=== PATIENT | male | born 1960 | race Caucasian/White ===

== ENCOUNTER 2020-03-06 16:21 | Outpatient (CLI) | payer OTHER | END 2020-03-06 16:22 | disposition home or self-care (01) | LOC: COV 16:21 | PROVIDERS: ATTEND Family Medicine | DX: Z20.828 Contact with and (suspected) exposure to other viral communicable diseases (principal) ==

== ENCOUNTER 2023-11-15 11:08 | Outpatient (CLI) | payer MEDICARE, OTHER ==
--- NOTE | 2023-11-15 12:04 | Sleep Patient Instructions ---
Sleep Center Visit Summary - Patient Visit Information Reason for Visit: Initial consultation - Patient Instructions Additional Instructions: You will continue with CPAP therapy with pressure changed to 7-10 cmH2O. A supply prescription will be updated with your DME. I have added an order to update your PAP machine. Please call the office to schedule a compliance follow up once you get your new device. We encourage you to continue to try to lose weight. Please follow up with the sleep care office one month after obtaining new device. - Clinic Information Contact: [facility] [address] [place] [address] [email or web address] T: [phone]
--- NOTE | 2023-11-15 12:16 | SLEEP CARE CONSULTATION ---
Information from patient questionnaire entered by Kelsi Ames. I have reviewed and concur with the information entered by Kelsi Ames. This document represents the service I personally performed and the decisions made by me, Joy Vega ARNP. History of Present Illness Service Date and Time: 11/15/2023 1108 Reason for Visit: New patient, Previously diagnosed sleep apnea, sleep apnea on CPAP therapy Chief Complaint: reports: Other (UPDATE SUPPLIES) Date of Onset: 16YRS Usual bedtime: 2230 Time it takes to fall asleep: 15MINS Snores at night: Yes Observed to quit breathing while asleep: Yes Sleeps alone due to snoring: Yes Number of times waking at night: 4 Reasons for waking at night: reports: Bathroom Toss, Turn, or Twitch while sleeping: Yes Recalls having dreams: Yes Usually gets out of bed at: 0730 Feels refreshed in the morning: Yes Morning headache: No Sleepy or fatigued during the day: No Ever fallen asleep while driving: No Takes day naps: No Dreams during day naps: No Prior sleep studies: Yes Year and Where: [facility] Additional HPI information: TED MOSQUEDA was previously diagnosed to have moderate to severe, AHI 22.7 with supine AHI 56.5, MIXED (obstructive and central) sleep apnea-hypopnea syndrome as seen in PSG dated 06/11/2009 through [facility] and comes in today to establish care for CPAP therapy. - Parasomnia Symptoms Ever been unable to move upon waking from sleep: No Walks in sleep: No Talks in sleep: No Ever acted out dreams in sleep: No Ever felt weak in the knees when startled or emotional: No Bothered by creepy, crawly, restless sensations in legs: No Problems with memory or concentration: No CPAP Compliance Data - Data Reviewed with Patient Average duration of nightly device use: 3 hours 59 minutes Compliance rate %: 32.8 (111/180 days used; 16.7% days used in last 30 days) Current pressure setting (cmH2O): 5-20 (avg 8.5, max 11.1) Average residual AHI: 4.6 Central apnea: 0.5 Obstructive apnea: 1.4 Hypopnea: 2.7 Average large leak: 30 secs Compliance data discussion: He has a Dreamstation that he got from a granddaughter when his old Respironics machine started failing. He is getting his supplies from [facility]. He has a nasal cushion, ResMed AirFit N30i. Subjective Patient concerns: reports: dry mouth, nose, throat (dry mouth, regular but not every day. ). denies: aerophagia, mask discomfort, air blowing in eyes, mask leak noise, condensation in mask/hose, nasal congestion, epistaxis Observed to snore while using device: No Current pressure setting perceived as: too high On therapy, patient: reports: sleeping better, awakening more refreshed, being more awake and alert during the day, more rested overall. denies: drowsiness while driving Initial [place] Sleepiness Scale score: 12 (11/07/23) Past Medical History Past Medical History: reports: Arrythmia (atrial fibrillation), GERD, Other (high cholesterol) Social History The patient's occupation is a [employer]. Patient is and lives in . Have you smoked in the past 12 months: No Cigarettes per day (20/pack): 15 Years of smokin Quit date: 08/2019 Smoking Pack Years: 28.0 Alcohol use: Yes Alcohol amount and frequency: 1 GLASS 2-3 WEEKS Caffeine use: No Family History Family history of sleep disordered breathing: Yes Family Hx Sleep Apnea: Father: Snoring, Sibling: Sleep apnea - Treated Allergies and Home Medications Known drug allergies: No Drug allergies reviewed: Yes Home medication list reviewed: Yes (as listed) Allergy and home medication list: Allergies No Known Drug Allergies Allergy (Verified 11/11/23 10:51) Home Medications Medication Instructions Recorded Confirmed Last Taken Type Eliquis See Rx Instructions .ROUTE .COMPLEX 11/15/23 11/15/23 Unknown History Gabapentin See Rx Instructions .ROUTE .COMPLEX 11/15/23 11/15/23 Unknown History Metoprolol Succinate See Rx Instructions .ROUTE .COMPLEX 11/15/23 11/15/23 Unknown History Omeprazole See Rx Instructions .ROUTE .COMPLEX 11/15/23 11/15/23 Unknown History Simvastatin See Rx Instructions .ROUTE .COMPLEX 11/15/23 11/15/23 Unknown History Review of Systems Urinary: reports: frequency Physical Exam Vital signs obtained and entered by: JOY ANTHONY Blood Pressure: 117/72 Cuff size: long (right arm) Heart Rate: 67 O2 Saturation: 99 Height: 6 ft 2 in Weight: 236 lb 12.8 oz Body Mass Index: 30.4 BMI Classification: Obese Neck circumference: 18.25 Heart: regular rate and rhythm Lungs: clear bilaterally Impression and Plan 1. Mixed Central and Obstructive Sleep Apnea-Hypopnea Syndrome, moderate to severe, with fair treatment compliance and good apnea control. On CPAP therapy, the patient has better sleep quality and is more rested overall. He says the pressure seems to be too much and it has made it difficult for him to use the machine. I reviewed his data and adjusted his machine to 7-10 cm H2O. The CPAP he is using is from his granddaughter. His original machine started having problems and was a Respironics machine. It was last updated over 10 years ago. The patients CPAP is over 5 years old and of reasonable use. Thus, the CPAP will be updated. The new CPAPs also have a better humidity system which could assist control of patients dryness symptoms. A DWO prescription will be made. Compliance guidelines for new device and follow up discussed. If insurance comes back that he needs another sleep study this will be done. Patient's apnea severity and rationale for treatment to reduce apnea, improve sleep quality and reduce cardiovascular and cerebrovascular events was reviewed. I also reviewed the benefit of consistent device use of CPAP for arrhythmia, gastric reflux. 2. Obesity, unspecified. Currently patients BMI is 30.4. Obesity increases the risk of apnea, CPAP pressure requirements and overall health risks especially cardiovascular and diabetes. Thus patient is advised to lose weight. * Update CPAP * Change auto CPAP pressure to 7-10 cmH2O * Update supply prescription * Notify me if snoring with mask or feeling that the pressure is too much or too little * Attempt to lose weight * Call this office if any problems using CPAP * Return for follow up in one month after obtaining new device, or sooner if concerns arise Adjust device pressure to (cmH2O): 7-10 Counseling Topics: Weight loss health impact Prescriptions: Auto CPAP, Device supplies Plan: Update CPAP and have compliance visit Visit Type: In Office Time Spent with Patient (minutes): 49 Provider Statement: I spent 100% of the Face to Face Visit with the patient with greater than 50% spent counseling the patient and coordination of care.
[2023-11-15 12:36] VITALS: BP 117/72; O2SAT 99
== END 2023-11-15 11:09 | disposition home or self-care (01) ==
LOC: SC 11:08
PROVIDERS: ATTEND Nurse Practitioner Family
DX: G47.39 Other sleep apnea (principal); E66.9 Obesity, unspecified; Z68.30 Body mass index [BMI] 30.0-30.9, adult; Z87.891 Personal history of nicotine dependence
CPT/HCPCS: 99203; G0463; 99212

== ENCOUNTER 2024-01-03 10:50 | Outpatient (CLI) | payer MEDICARE, OTHER ==
--- NOTE | 2024-01-03 11:35 | Sleep Patient Instructions ---
Sleep Center Visit Summary - Patient Visit Information Reason for Visit: First compliance follow-up for CPAP replacement - Patient Instructions Additional Instructions: You were here for follow up of CPAP therapy. You will be continued on CPAP therapy with pressure at 7-11 cmH2O. Please let us know if the pressure change is uncomfortable and we can make further adjustments of the pressure. You should follow up with sleep care in 12 months. You may contact us sooner for any questions or concerns. - Clinic Information Contact: [facility] [address] [place] [address] [email or web address] T: [phone]
--- NOTE | 2024-01-03 11:40 | SLEEP CARE CONSULTATION ---
Information from patient questionnaire entered by Ankita Gonzalez. I have reviewed and concur with the information entered by Ankita Gonzalez. This document represents the service I personally performed and the decisions made by , Joy Vega ARNP. History of Present Illness Service Date and Time: 01/03/2024 1050 Previous diagnosis: Obstructive Sleep Apnea-Hypopnea Syndrome, Central Sleep Apnea-Hypopnea Syndrome, Mixed Sleep Apnea-Hypopnea Syndrome AHI: 22.7 (06/11/2009) Reason for follow up: first compliance after device update (Set up 11/21) Equipment type: CPAP (ResMed Airsense 10, s/u 11/22/2023) Equipment obtained from: [facility] [facility]) Mask style: Nasal (over the nose) Backup mask available: No Last cushion change: 1 month Prior sleep studies: Yes Year and Where: 2009 [facility] Type of Sleep Study: Polysomnography HPI additional information: TED MOSQUEDA was diagnosed to have moderate to severe, AHI 22.7 with supine AHI of 56.5, mixed sleep apnea-hypopnea syndrome and returned today for CPAP therapy first compliance after updating device follow-up. Sleep Study - Results Prior sleep studies: Yes Year and Where: 2009 [facility] CPAP Compliance Data - Data Reviewed with Patient Average duration of nightly device use: 5 h 0 min Compliance rate %: 77 (28/30 days used; 12/03/2023-01/01/2024) Current pressure setting (cmH2O): 7-10 (avg 9.8, max 9.9) Average residual AHI: 5.2 Central apnea: 2.9 Obstructive apnea: 1 Hypopnea: 1.2 Average large leak: 3.9 Subjective Missed days of use due to: reports: travel Patient concerns: reports: condensation in mask/hose, dry mouth, nose, throat (dry mouth, oral venting). denies: aerophagia, mask discomfort, air blowing in eyes, mask leak noise, nasal congestion, epistaxis Observed to snore while using device: No Current pressure setting perceived as: comfortable On therapy, patient: reports: sleeping better, awakening more refreshed, being more awake and alert during the day, more rested overall. denies: drowsiness while driving Initial [place] Sleepiness Scale score: 12 (11/07/23) Current [place] Sleepiness Scale score: 8 (01/03/24) Allergies and Home Medications Known drug allergies: No Drug allergies reviewed: Yes Home medication list reviewed: Yes (no changes) Allergy and home medication list: Allergies No Known Drug Allergies Allergy Review of Systems Review of systems same as previous: Yes (no changes) Physical Exam Vital signs obtained and entered by: oJy Ball NP Blood Pressure: 119/86 Cuff size: long (left arm) Heart Rate: 75 O2 Saturation: 97 Height: 6 ft 2 in Weight: 231 lb 9.6 oz Body Mass Index: 29.7 BMI Classification: Overweight Impression and Plan 1. MIXED Sleep Apnea-Hypopnea Syndrome, moderate to severe, with good treatment compliance and good apnea control with minimal elevation of residual AHI. On CPAP therapy, the patient has better sleep quality and is more rested overall. The patients pressure will be changed to autoCPAP 7-11 cmH20 for elevation of residual AHI. Patient advised to contact me if pressure change is uncomfortable so that it can be adjusted. Goals for apnea control discussed. Patient's apnea severity and rationale for treatment to reduce apnea, improve sleep quality and reduce cardiovascular and cerebrovascular events was reviewed. I also reviewed the benefit of consistent device use of CPAP for arrhythmia, gastric reflux. 2. Overweight, unspecified. Currently patients BMI is 29.7. Obesity increases the risk of apnea, CPAP pressure requirements and overall health risks especially cardiovascular and diabetes. Thus patient is advised to lose weight. * Change auto CPAP pressure to 7-11 cmH2O * Notify me if snoring with mask or feeling that the pressure is too much or too little * Attempt to lose weight * Call this office if any problems using CPAP * Return for follow up in 12 months, or sooner if concerns arise Adjust device pressure to (cmH2O): 7-11 Counseling Topics: Spare mask, Weight loss health impact Follow up with Sleep Care in: 1 year Visit Type: In Office Time Spent with Patient (minutes): 23 Provider Statement: I spent 100% of the Face to Face Visit with the patient with greater than 50% spent counseling the patient and coordination of care.
[2024-01-03 11:52] VITALS: BP 119/86; O2SAT 97
== END 2024-01-03 10:51 | disposition home or self-care (01) ==
LOC: SC 10:50
PROVIDERS: ATTEND Nurse Practitioner Family
DX: G47.39 Other sleep apnea (principal); E66.3 Overweight; Z68.29 Body mass index [BMI] 29.0-29.9, adult
CPT/HCPCS: 99213; G0463; 99212